=== PATIENT | male | born 1995 | race Hispanic/Latino ===

== ENCOUNTER 2018-01-25 07:53 | Emergency (ER) | payer SELFPAY ==
[2018-01-25] MEDS ORDERED: Pseudoephedrine HCl 30 MG TAB ONE (08:14)
== END 2018-01-25 08:15 | disposition home or self-care (01) ==
LOC: MADERS 07:53
DX: H61.21 Impacted cerumen, right ear (principal); F17.210 Nicotine dependence, cigarettes, uncomplicated
CPT/HCPCS: 99282